=== PATIENT | female | born 1950 | race Caucasian/White ===

== ENCOUNTER 2018-05-13 12:15 | Inpatient (IN) | payer OTHER ==
[~2018-05-13] VITALS: Ht 154.9 cm; Wt 52.2 kg
[2018-05-13] MEDS ORDERED: ALENDRONATE SOD70 MG PO (14:30)
[2018-05-13] MEDS ORDERED: SYNTHROID75 MCG PO (14:30)
[2018-05-13] MEDS ORDERED: FENOFIBRATE145 MG PO (14:31)
[2018-05-13] MEDS ORDERED: VIT D PO (14:31)
[2018-05-13] MEDS ORDERED: NITROFURANTOIN25 MG PO (14:31)
[2018-05-13] MEDS ORDERED: CALTRATE 600+D1 EACH PO (14:32)
[2018-05-13] MEDS ORDERED: MELOXICAM7.5 MG PO (14:32)
[2018-05-13] MEDS ORDERED: CENTRUM ADULTS1 EACH PO (14:33)
[2018-05-22] MEDS ORDERED: VITAMIN D5000 UNIT PO (15:25)
== END 2018-05-23 17:45 | disposition home or self-care (01) | DRG 331 ==
LOC: O/R 05-20 05:08 → SURH 05-20 05:08
PROVIDERS: Colon & Rectal Surgery
PROC: 0DJD8ZZ Inspection of Lower Intestinal Tract, Via Natural or Artificial Opening Endoscopic (ICD-10-PCS; 2018-05-20)
PROC: 0DTN4ZZ Resection of Sigmoid Colon, Percutaneous Endoscopic Approach (ICD-10-PCS; principal; 2018-05-20 12:30)
DX: K57.32 Diverticulitis of large intestine without perforation or abscess without bleeding (principal); E03.8 Other specified hypothyroidism

== ENCOUNTER 2019-06-05 05:55 | Day surgery (SDC) | payer OTHER ==
[~2019-06-05 05:55] MED LIST: ALENDRONATE SOD70 MG PO; CALTRATE 600+D1 EACH PO; CENTRUM ADULTS1 EACH PO; FENOFIBRATE145 MG PO; MELOXICAM7.5 MG PO; NITROFURANTOIN25 MG PO; SYNTHROID75 MCG PO; VIT D PO; VITAMIN D5000 UNIT PO
== END 2019-06-05 10:30 | disposition home or self-care (01) ==
LOC: AMB-ENDOS 05:55
DX: K57.32 Diverticulitis of large intestine without perforation or abscess without bleeding (principal); K64.1 Second degree hemorrhoids